=== PATIENT | female | born 1980 | race Caucasian/White ===

== ENCOUNTER → 2018-04-21 | Outpatient (CLI) | payer OTHER ==
--- NOTE | 2018-04-22 07:08 | US ---
EXAMINATION TYPE: US OB >= 14 wk fetus DATE OF EXAM: 04/21/2018 COMPARISON: None CLINICAL HISTORY: O09.521 Supervision of elderly multigravida,[address]St Tr for dates and cervical length me asure; HX of LEEP; ; all vaginal delivery TECHNIQUE: Transabdominal (TA) GESTATIONAL AGE / DATING Physician Established: Not yet established Dates by LMP: 12/28/2017 (16 weeks/2 days) EDC: 12/28/2018 Dates by First Scan: No previous: this is first scan Dates by Current Scan: (16 weeks/1 day) EDC: 10/05/2018 Beta HCG (if available): NA SURVEY IUP: Single PLACENTA: Anterior PREVIA: No Previa CINDY: 11.4 cm Normal CERVICAL LENGTH (transabdominal: norm > 3.0cm): 3.1 cm and multiple measures of cervix length are not ed at > 3.0cm. BIOMETRY PRESENTATION: Breech LIE: Longitudinal BPD: 3.4 cm 16 weeks / 3 days HC: 12.3 cm 16 weeks / 1 day AC: 10.0 cm 16 weeks / 0 days FL: 2.0 cm 16 weeks / 0 days ESTIMATED WEIGHT IN GRAMS: 143.0 grams ESTIMATED WEIGHT IN LBS/OZ: 0 lbs. 5 oz. WEIGHT PERCENTAGE BASED ON ESTABLISHED DATES: 26.4% HC/AC: 1.24 Normal FL/AC: 20.28 Normal HEART RATE: 160 bpm RHYTHM: Normal IMPRESSION: Large maternal body habitus is noted. Single, live IUP, 16 weeks/1 day, EDC: 10/05/2018, HR 160 bpm.
== END | disposition home or self-care (01) ==
LOC: RADUSWWP 16:05
PROVIDERS: ATTEND Obstetrics & Gynecology
DX: O09.521 Supervision of elderly multigravida, first trimester (principal); Z3A.16 16 weeks gestation of pregnancy
CPT/HCPCS: 76805

== ENCOUNTER → 2018-08-04 | Outpatient (CLI) | payer OTHER ==
--- NOTE | 2018-08-04 15:45 | US ---
EXAMINATION TYPE: US OB >= 14 wk fetus DATE OF EXAM: 08/04/2018 COMPARISON: None CLINICAL HISTORY: 38-year-old female O24.414 Gestational Diabetes Mellitus 3rd Trimester, Diabetes TECHNIQUE: Transabdominal (TA) FINDINGS: GESTATIONAL AGE / DATING Physician Established: (31 weeks/2 days) EDC: 10/04/18 Dates by First Scan: (31 weeks/1 days) EDC: 10/05/18 Dates by Current Scan: (31 weeks/1 days) EDC: 10/05/18 SURVEY IUP: Single PLACENTA: Anterior PREVIA: No Previa CINDY: 21.3 cm Normal (7.84-26.5 cm) CERVICAL LENGTH (transabdominal: norm > 3.0cm): 4.0 cm BIOMETRY PRESENTATION: Breech LIE: Transverse with head maternal RT BPD: 7.9 cm 31 weeks / 6 days HC: 29.3 cm 32 weeks / 2 days AC: 27.3 cm 31 weeks / 3 days FL: 5.9 cm 30 weeks / 5 days ESTIMATED WEIGHT IN GRAMS: 1742 grams ESTIMATED WEIGHT IN LBS/OZ: 3 lbs. 13 oz. WEIGHT PERCENTAGE BASED ON ESTABLISHED DATES: 38.7% HC/AC: 1.07 Normal FL/AC: 21.61 Normal HEART RATE: 143 bpm RHYTHM: Normal IMPRESSION: 1. Single live intrauterine with established gestational age of 31 weeks 2 days. Current ul trasound biometry is concordant (31 weeks 1 day) placing the gestation at the 39th percentile for robson ght. There has been appropriate interval growth. 2. Note CINDY close to the upper end of the normal range (21.3 cm). Follow-up as indicated. 3. Note that this exam was not performed as a survey.
== END | disposition home or self-care (01) ==
LOC: RADUSWWP 12:05
PROVIDERS: ATTEND Obstetrics & Gynecology
DX: O24.414 Gestational diabetes mellitus in pregnancy, insulin controlled (principal); Z3A.31 31 weeks gestation of pregnancy
CPT/HCPCS: 76805

== ENCOUNTER → 2018-09-16 | Outpatient (CLI) | payer OTHER ==
--- NOTE | 2018-09-16 16:54 | US ---
"EXAMINATION TYPE: US OB >= 14 wk fetus DATE OF EXAM: 09/16/2018 COMPARISON: US CLINICAL HISTORY: O24.414 Gestational diabetes mellitus in ; ; smoker; large maternal b rosalinda habitus TECHNIQUE: Transabdominal (TA) GESTATIONAL AGE / DATING Physician Established: (37 weeks/3 days) EDC: 10/04/2018 Dates by LMP: LMP unknown Dates by First Scan: (37 weeks/2 days) EDC: 10/05/2018 Dates by Current Scan: (36 weeks/1 day) EDC: 10/13/2018 Beta HCG (if available): NA SURVEY IUP: Single PLACENTA: Anterior PREVIA: No Previa CINDY: 31.2 cm Polyhydramnios as is > 27.2cm per machine's range allowance CERVICAL LENGTH (transabdominal: norm > 3.0cm): 3.9 cm BIOMETRY PRESENTATION: Vertex LIE: Transverse with head maternal right BPD: 9.0 cm 36 weeks / 3 days HC: 33.1 cm 37 weeks / 5 days AC: 32.1 cm 36 weeks / 3 days FL: 7.0 cm 35 weeks / 6 days ESTIMATED WEIGHT IN GRAMS: 2885.0 grams ESTIMATED WEIGHT IN LBS/OZ: 6 lbs. 6 oz. WEIGHT PERCENTAGE BASED ON ESTABLISHED DATES: 27.8% HC/AC: 1.03 Normal FL/AC: 21.78 Normal HEART RATE: 134 bpm RHYTHM: MATERNAL WALL MEASUREMENT: 4.6 cm from skin to anterior uterine wall (if exam limited due to body hab itus). 1. Single, live IUP, 36 weeks/1 day, EDC: 10/13/2018, HR 134bpm, polyhydramnios as CINDY > 27.2cm per m achine's range and assessed x 2. IMPRESSION: Single intrauterine gestation estimated at 36 weeks 1 day gestation based on current ultrasound measu rements. This has a cardiac activity measuring 134 bpm. 2. Polyhydramnios 3. Estimated weight 28th percentile based on current measurements. Estimated weight is 28 85 g. A [place] level critical message alert has been initiated for Marcelo Rosario DO via the [employer] | Critical Results System on 09/16/2018 4:50 PM. This message alert has been sent to Marcelo roberts DO via the preferences provided by the clinician for the receipt of Radiology Critical Findings. Judy essage ID [id number]."
== END | disposition home or self-care (01) ==
LOC: RADUSWWP 13:19
PROVIDERS: ATTEND Obstetrics & Gynecology
DX: O40.3XX0 Polyhydramnios, third trimester, not applicable or unspecified (principal); O24.414 Gestational diabetes mellitus in pregnancy, insulin controlled; Z3A.36 36 weeks gestation of pregnancy
CPT/HCPCS: 76805

== ENCOUNTER → 2020-05-11 | Outpatient (CLI) | payer OTHER | END | disposition home or self-care (01) | LOC: LABWHC1 09:54 | PROVIDERS: ATTEND Family Medicine | DX: R06.89 Other abnormalities of breathing (principal); R19.7 Diarrhea, unspecified; R05 Cough | CPT/HCPCS: U0003; C9803 ==

== ENCOUNTER → 2023-05-14 | Outpatient (CLI) | payer OTHER ==
--- NOTE | 2023-05-15 12:38 | MM ---
Reason for Exam: Screening (asymptomatic). Baseline mammogram. Patient History: Menarche at age 10. First Full-Term at age 19. Patient has history of breast feeding. Currently using Hormonal Contraceptives, for 2 years. Paternal aunt had breast cancer. Paternal uncle had breast cancer. Last menstrual period: 05/10/2023 Risk Values: Gayle 5 year model risk: 0.7%. NCI Lifetime model risk: 8.6%. Prior Study Comparison: Patient's first Mammogram. No prior studies available for comparison. Tissue Density: There are scattered fibroglandular densities. Findings: Analyzed By CAD. There is no suspicious group of microcalcifications or new suspicious mass. Benign-appearing calcifications bilaterally. Overall Assessment: Benign, BI-RAD 2 Management: Screening Mammogram of both breasts in [address] [facility] will attempt to contact patient to return for supplemental views and ultrasound if indicated. Patient should continue monthly self-breast exams. A clinical breast exam by your physician is recommended on an annual basis. This exam should not preclude additional follow-up of suspicious palpable abnormalities. Note on Gayle scores and lifetime risk: 1. A Gayle score greater than 3% is considered moderate risk. If this is the case, consider specialist referral to assess eligibility for a risk reducing agent. 2. If overall lifetime risk for the development of breast cancer is 20% or higher, the patient may qualify for future screening with alternating mammogram and breast MRI. Electronically signed and approved by: Ricky Hebert DO
== END ==
LOC: CPPFTMAIN 12:41
PROVIDERS: ATTEND Internal Medicine
DX: Z12.31 Encounter for screening mammogram for malignant neoplasm of breast (principal); J45.40 Moderate persistent asthma, uncomplicated; Z91.018 Allergy to other foods; Z91.011 Allergy to milk products; Z88.5 Allergy status to narcotic agent; Z87.891 Personal history of nicotine dependence; Z79.899 Other long term (current) drug therapy
CPT/HCPCS: 77063; 77067; 94060; 94726; 94729

== ENCOUNTER → 2024-01-13 | Outpatient (CLI) | payer OTHER ==
--- NOTE | 2024-01-13 17:01 | CT ---
EXAMINATION TYPE: CT abdomen pelvis wo con DATE OF EXAM: 01/13/2024 COMPARISON: None INDICATION: Upper abdominal pain x 6 days DLP: 1275 mGycm, Automated exposure control for dose reduction was used. CONTRAST: 0 mL of Isovue 300. Study performed with Oral Contrast TECHNIQUE: Axial images were obtained from above the diaphragm to the pubic rami in the axial plane a t 5 mm thick sections. Reconstructed images are reviewed on the computer in the coronal plane. FINDINGS: Limited CT sections are obtained the lung bases. The lung bases are clear. CT ABDOMEN: Liver: No discrete masses are evident. The liver is enlarged measuring 20 cm in craniocaudal dimensio n, normal less than 15.5 cm. Spleen: The spleen measures 12.6 cm in cranial caudal dimension. Normal is 12.5 cm. Pancreas: Normal Adrenal glands: The adrenal glands are normal. Gallbladder: Multiple gallstones are present. Kidneys: No masses are evident. No hydronephrosis is present. No cysts are present. No renal stone s are identified. Aorta: Normal Inferior vena cava: Normal. CT PELVIS: Loops of bowel distended with oral contrast appear unremarkable. Oral contrast extends to the cecum. There are loops of bowel lacking oral contrast were distended limiting their evaluation. A few divert iculi may be present. Appendix: Normal as visualized. Urinary bladder: Normal. Genitourinary structures: Uterus and adnexa appear normal. Osseous structures: No suspicious lytic or sclerotic lesions. IMPRESSION: 1. Cholelithiasis. 2. Hepatomegaly.
== END | disposition home or self-care (01) ==
LOC: RADCTMAIN 14:47
PROVIDERS: ATTEND Family Medicine
DX: K80.20 Calculus of gallbladder without cholecystitis without obstruction (principal); R16.1 Splenomegaly, not elsewhere classified; R16.0 Hepatomegaly, not elsewhere classified
CPT/HCPCS: 74176

== ENCOUNTER → 2024-02-23 | Outpatient (CLI) | payer OTHER ==
--- NOTE | 2024-02-23 14:07 | NM ---
EXAMINATION TYPE: NM hepatobiliary wo EF DATE OF EXAM: 02/23/2024 11:31 AM COMPARISON: CT abdomen pelvis most recent from 01/13/2024. CLINICAL INDICATION:Female, 43 years old with history of K80.20 CALCULUS OF GALLBLADDER W/O CHOLECY R10.84; TECHNIQUE: The patient was given 5 mCi of Technetium 99m-Mebrofenin as a radiotracer and multiple sc intigraphic images were obtained of the abdomen. Delayed imaging performed. FINDINGS: Normal uptake of radiotracer was identified within the liver with excretion into the hepatic and comm on biliary ducts within 10 minutes. There was normal progressive washout of the liver over the course of the study. Radiotracer uptake within the gallbladder is not definitively visualized. As well as s mall bowel activity was identified at 12 minutes. Uptake in the right upper quadrant delayed imaging thought to be within the duodenum. IMPRESSION: Poor visualization of the gallbladder. Not definitively visualized and 60 minute images area on delay ed imaging possibly representing duodenal uptake. Findings concerning for cystic duct obstruction. Villegas rgical consultation recommended.
== END | disposition home or self-care (01) ==
LOC: RADNMMAIN 06:47
PROVIDERS: ATTEND Family Medicine
DX: K80.20 Calculus of gallbladder without cholecystitis without obstruction (principal); R10.84 Generalized abdominal pain
CPT/HCPCS: 78226; A9537

== ENCOUNTER 2024-02-26 11:17 | Observation (INO) | payer OTHER ==
--- NOTE | 2024-02-26 11:28 | ED ---
Abdominal Pain HPI - General Source: patient, RN notes reviewed Mode of arrival: ambulatory Limitations: no limitations - History of Present Illness MD Complaint: abdominal pain <Christiane Krause - Last Filed: 02/26/24 11:26> - General Source: patient, family, RN notes reviewed, old records reviewed Mode of arrival: ambulatory Limitations: no limitations <Rasheeda Cardona - Last Filed: 02/26/24 19:05> - General Chief Complaint: Abdominal Pain Stated Complaint: severe abd pain Time Seen by Provider: 02/26/24 11:26 - History of Present Illness Initial Comments: Quick Note: This is a 43-year-old female who presents to the emergency department for abdominal pain. Patient had a HIDA scan 3 days ago concerning for cystic duct obstruction. States that she has had increasing pain and today it became severe. She has nausea but no vomiting. (Christiane Krause) 43 old female presented to the ER with a chief complaint of right upper quadran t/epigastric abdominal pain. She states this been ongoing for the past couple months and has been receiving outpatient workup. Patient states she had a HIDA scan done on 02-23-2024. She is scheduled for for a consultation with Dr. Leal, 05-27-2024. She states she has been taking [id number] ibuprofen and prescribed Bentyl with minor relief. She states today the pain has been intolerable which brought her to the ER. She describes the pain as sharp in nature. She endorses nausea denies vomiting. She is able to keep medications down but states it makes her extremely nauseous. She also reports intermittent diarrhea. Denies any fevers, chills, chest pain, shortness of breath, urinary complaints or peripheral edema. HIDA scan reviewed from 02-23-2024 showing findings concerning of a cystic duct obstruction. (Rasheeda Cardona) - Related Data Home Medications Medication Instructions Recorded Confirmed Loratadine [Claritin] 10 mg PO DAILY 12/20/13 02/26/24 Albuterol Nebulized [Ventolin 2.5 mg INHALATION RT-TID PRN 02/26/24 02/26/24 Nebulized] Albuterol Sulfate [Ventolin HFA] 1 - 2 puff INHALATION RT-QID PRN 02/26/24 02/26/24 Dicyclomine [Bentyl] 20 mg PO DAILY 02/26/24 02/26/24 Metoprolol Succinate [Toprol XL] 50 mg PO DAILY 02/26/24 02/26/24 Montelukast [Singulair] 10 mg PO DAILY 02/26/24 02/26/24 amLODIPine [Norvasc] 5 mg PO DAILY 02/26/24 02/26/24 Allergies Allergy/AdvReac Type Severity Reaction Status Date / Time chocolate flavor Allergy Unknown Verified 02/26/24 12:32 lactase [From Dairy Aid] Allergy Unknown Verified 02/26/24 12:32 maitake mushroom Allergy Unknown Verified 02/26/24 12:32 morphine Allergy Rash/Hives Verified 02/26/24 12:32 tomato Allergy Unknown Verified 02/26/24 12:32 Review of Systems ROS Other: All systems not noted in ROS Statement are negative. <Christiane Krause - Last Filed: 02/26/24 11:26> ROS Other: All systems not noted in ROS Statement are negative. <Rasheeda Cardona - Last Filed: 02/26/24 19:05> ROS Statement: Those systems with pertinent positive or pertinent negative responses have been documented in the HPI. Past Medical History Past Medical History: Hyperlipidemia, Hypertension History of Any Multi-Drug Resistant Organisms: None Reported Additional Past Surgical History / Comment(s): d & c Past Psychological History: Depression Past Alcohol Use History: Rare Past Drug Use History: Marijuana <Christiane Krause - Last Filed: 02/26/24 11:26> General Exam <Christiane Krause - Last Filed: 02/26/24 11:26> Limitations: no limitations General appearance: alert, in no apparent distress Respiratory exam: Present: normal lung sounds bilaterally. Absent: respiratory distress, wheezes, rales, rhonchi, stridor Cardiovascular Exam: Present: regular rate, normal rhythm, normal heart sounds. Absent: systolic murmur, diastolic murmur, rubs, gallop, clicks GI/Abdominal exam: Present: soft, tenderness (Right upper quadrant.), normal bowel sounds Extremities exam: Present: normal inspection, full ROM, normal capillary refill. Absent: tenderness, pedal edema, joint swelling, calf tenderness Neurological exam: Present: alert, oriented X3, CN II-XII intact Skin exam: Present: warm, dry, intact, normal color. Absent: rash <Rasheeda Cardona - Last Filed: 02/26/24 19:05> - General Exam Comments Initial Comments: Visual Physical Exam Vital signs reviewed General: Well-appearing, nontoxic, no acute distress. Head: Normocephalic, atraumatic Eyes: PERRLA, EOMI ENT: Airway patent Chest: Nonlabored breathing Skin: No visual rash, normal skin tone Neuro: Alert and oriented 3 Musculoskeletal: No gross abnormalities (Christiane Krause) Course <Rasheeda Cardona - Last Filed: 02/26/24 19:05> Vital Signs 02/26/24 02/26/24 12:26 16:57 Temperature 97.5 F L Pulse Rate 88 76 Respiratory 20 18 Rate Blood Pressure 141/92 143/83 O2 Sat by Pulse 100 100 Oximetry - Reevaluation(s) Reevaluation #1: 02/26/24 17:[address] Leal, pest controller general surgery, for admission. (Rasheeda Cardona) Medical Decision Making <Christiane Krause - Last Filed: 02/26/24 11:26> - Lab Data Result diagrams: 02/26/24 12:39 02/26/24 12:39 - Radiology Data Radiology results: report reviewed, image reviewed <Rasheeda Cardona - Last Filed: 02/26/24 19:05> - Medical Decision Making I performed the QuickNote portion of this chart. Signed Christiane Krause PA-C. (Christiane Krause) Was pt. sent in by a medical professional or institution (BARRY Aceves, CHARGING OPERATOR, urgent care, hospital, or correction...) When possible be specific @ -No Did you speak to anyone other than the patient for history (EMS, parent, family, police, friend...)? What history was obtained from this source @ -No Did you review nursing and triage notes (agree or disagree)? Why? @ -I reviewed and agree with nursing and triage notes Were old charts reviewed (outside hosp., previous admission, EMS record, old EKG, old radiological studies, urgent care reports/EKG's, correction records)? Report findings @ -Yes, I reviewed HIDA scan from 02-23-2024. Findings concerning of his cystic duct obstruction. Differential Diagnosis (chest pain, altered mental status, abdominal pain women, abdominal pain men, vaginal bleeding, weakness, fever, dyspnea, syncope, headache, dizziness, GI bleed, back pain, seizure, CVA, palpatations, mental health, musculoskeletal)? @ -Differential Abdominal Pain Women: Appendicitis, Cholecystitis, diverticulosis, ischemic bowel, pancreatitis, hepatitis, UTI, gastroenteritis, AAA, incarcerated hernia, bowel obstruction, constipation, inflammatory bowel, hepatitis, peptic ulcer disease, splenic infarction, perforated viscus, vulvitis, ovarian torsion, PID, kidney stone, placenta abruption, this is not meant to be an all-inclusive list EKG interpreted by me (3pts min.). @ -None X-rays interpreted by me (1pt min.). @ -None done CT interpreted by me (1pt min.). @ -None done U/S interpreted by me (1pt. min.). @ -Gallbladder ultrasound showing a multiple nonmobile stones with a large stone within the neck measuring 1.6 cm. Common bile duct is dilated to 0.9 cm. No evidence of cholecystitis. What testing was considered but not performed or refused? (CT, X-rays, U/S, labs)? Why? @ -None What meds were considered but not given or refused? Why? @ -None Did you discuss the management of the patient with other professionals (professionals i.e. , PA, CHARGING OPERATOR, lab, RT, psych nurse, social work professor, freight rate analyst, teacher, correction officer reformatory, lining caser)? Give summary @ -Yes, case discussed with on-call general surgeon, Dr. Leal, for admission. Was smoking cessation discussed for >3mins.? @ -No Was critical care preformed (if so, how long)? @ -No Were there social determinants of health that impacted care today? How? (Homelessness, low income, unemployed, alcoholism, drug addiction, transportation, low edu. Level, literacy, decrease access to med. care, nursing home, rehab)? @ -No Was there de-escalation of care discussed even if they declined (Discuss DNR or withdrawal of care, Hospice)? DNR status @ -No What co-morbidities impacted this encounter? (DM, HTN, Smoking, COPD, CAD, Cancer, CVA, ARF, Chemo, Hep., AIDS, mental health diagnosis, sleep apnea, morbid obesity)? @ -Obese, hypertension, hyperlipidemia Was patient admitted / discharged? Hospital course, mention meds given and route, prescriptions, significant lab abnormalities, going to OR and other pertinent info. @ -Admitted. 43-year-old female presented to the ER with a chief complaint of right upper quadrant abdominal pain. Patient originally seen in initial orders completed as a quick note. Upon my evaluation, history and physical exam completed. Vitals stable. Patient in no signs of acute distress and nontoxic- appearing. Exam remarkable for right upper quadrant/epigastric abdominal tenderness. No rebound or guarding. Normal bowel sounds. Laboratory studies obtained unremarkable. Gallbladder ultrasound performed showing multiple nonmobile stones within the gallbladder with a large stone within the neck measuring 1.6 cm. There is common bile duct dilation at 0.9 cm. No evidence of acute process. HIDA scan reviewed from 02-23-2024 with findings concerning of cystic duct obstruction. Admission considered due to cystic duct obstruction and common bile duct dilation. Case discussed with on-call general surgeon, Dr. Leal ,accepts admission. Upon reevaluation, patient resting comfortably on stretcher in no signs of acute distress. Symptomatic treatment in the ER, with mild improvement. Patient agreeable for admission. Patient admitted in stable condition for further care and treatment. Case discussed with ED attending, Dr Shaffer. Undiagnosed new problem with uncertain prognosis? @ -No Drug Therapy requiring intensive monitoring for toxicity (Heparin, Nitro, Insulin, Cardizem)? @ -No Were any procedures done? @ -No Diagnosis/symptom? @ -Cholelithiasis/cystic duct obstruction/common bile duct dilation Acute, or Chronic, or Acute on Chronic? @ -Acute Uncomplicated (without systemic symptoms) or Complicated (systemic symptoms)? @ -Complicated Side effects of treatment? @ -No Exacerbation, Progression, or Severe Exacerbation? @ -No Poses a threat to life or bodily function? How? (Chest pain, [place], [place], pneumonia, PE, COPD, DKA, ARF, appy, cholecystitis, CVA, Diverticulitis, Homicidal, Suicidal, threat to staff... and all critical care pts) @ -Yes, cystic duct obstruction is concerning of the common bile duct obstruction which can lead to cholangitis and sepsis. (Rasheeda Cardona) - Lab Data Lab Results 02/26/24 02/26/24 02/26/24 Range/Units 12:39 12:39 12:39 WBC 5.9 (3.8-10.6) k/uL RBC 4.71 (3.80-5.40) m/uL Hgb 13.1 (11.4-16.0) gm/dL Hct 38.8 (34.0-46.0) % MCV 82.5 (80.0-100.0) fL MCH 27.8 (25.0-35.0) pg MCHC 33.7 (31.0-37.0) g/dL RDW 13.9 (11.5-15.5) % Plt Count 211 (150-450) k/uL MPV 7.5 Neutrophils % 66 % Lymphocytes % 23 % Monocytes % 6 % Eosinophils % 3 % Basophils % 1 % Neutrophils # 3.9 (1.3-7.7) k/uL Lymphocytes # 1.4 (1.0-4.8) k/uL Monocytes # 0.3 (0-1.0) k/uL Eosinophils # 0.2 (0-0.7) k/uL Basophils # 0.0 (0-0.2) k/uL PT 10.2 (10.0-12.5) sec INR 0.9 (<1.2) APTT 24.4 (22.0-30.0) sec Sodium 140 (137-145) mmol/L Potassium 4.0 (3.5-5.1) mmol/L Chloride 104 (98-107) mmol/L Carbon Dioxide 29 (22-30) mmol/L Anion Gap 7 mmol/L BUN 13 (7-17) mg/dL Creatinine 0.66 (0.52-1.04) mg/dL Est GFR (CKD-EPI)AfAm >90 (>60 ml/min/1.73 sqM) Est GFR (CKD-EPI)NonAf >90 (>60 ml/min/1.73 sqM) Glucose 177 H (74-99) mg/dL Plasma Lactic Acid Arley (0.7-2.0) mmol/L Calcium 9.3 (8.4-10.2) mg/dL Total Bilirubin 0.4 (0.2-1.3) mg/dL AST 26 (14-36) U/L ALT 28 (4-34) U/L Alkaline Phosphatase 67 (38-126) U/L Total Protein 7.0 (6.3-8.2) g/dL Albumin 4.3 (3.5-5.0) g/dL HCG, Qual Not Detected 02/26/24 Range/Units 12:39 WBC (3.8-10.6) k/uL RBC (3.80-5.40) m/uL Hgb (11.4-16.0) gm/dL Hct (34.0-46.0) % MCV (80.0-100.0) fL MCH (25.0-35.0) pg MCHC (31.0-37.0) g/dL RDW (11.5-15.5) % Plt Count (150-450) k/uL MPV Neutrophils % % Lymphocytes % % Monocytes % % Eosinophils % % Basophils % % Neutrophils # (1.3-7.7) k/uL Lymphocytes # (1.0-4.8) k/uL Monocytes # (0-1.0) k/uL Eosinophils # (0-0.7) k/uL Basophils # (0-0.2) k/uL PT (10.0-12.5) sec INR (<1.2) APTT (22.0-30.0) sec Sodium (137-145) mmol/L Potassium (3.5-5.1) mmol/L Chloride (98-107) mmol/L Carbon Dioxide (22-30) mmol/L Anion Gap mmol/L BUN (7-17) mg/dL Creatinine (0.52-1.04) mg/dL Est GFR (CKD-EPI)AfAm (>60 ml/min/1.73 sqM) Est GFR (CKD-EPI)NonAf (>60 ml/min/1.73 sqM) Glucose (74-99) mg/dL Plasma Lactic Acid Arley 1.0 (0.7-2.0) mmol/L Calcium (8.4-10.2) mg/dL Total Bilirubin (0.2-1.3) mg/dL AST (14-36) U/L ALT (4-34) U/L Alkaline Phosphatase (38-126) U/L Total Protein (6.3-8.2) g/dL Albumin (3.5-5.0) g/dL HCG, Qual Disposition <Christiane Krause - Last Filed: 02/26/24 11:26> Time of Disposition: 17:36 <Rasheeda Cardona - Last Filed: 02/26/24 19:05> Clinical Impression: Cholelithiasis, Calculus of cystic duct, Common bile duct dilatation Disposition: ADMITTED IP TO THIS [facility] Condition: Stable Referrals: Jackie French MD [Primary Care Provider] - 1-2 days
--- NOTE | 2024-02-26 13:34 | US ---
EXAMINATION TYPE: US gallbladder DATE OF EXAM: 02/26/2024 COMPARISON: NONE CLINICAL INDICATION: Female, 43 years old with history of RUQ pain, hx of gallbladder problems; known failed HIDA scan 3 days ago, stones seen on CT, pending cholecystectomy in Apr but pain is getting w orse TECHNIQUE: Multiple sonographic images of the right upper quadrant are obtained. FINDINGS: EXAM MEASUREMENTS: Liver Length: 21.3 cm Gallbladder Wall: 0.2 cm CBD: 0.9 cm Right Kidney: 10.1 x 4.7 x 5.1 cm FLAT HAMMERER NOTES: large habitus and bowel gas limits exam Pancreas: limited views appear wnl Liver: enlarged and difficult to penetrate Gallbladder: multiple non mobile stone with large stone within neck = 1.6cm Evidence for sonographic Scales's sign: no CBD: dilated Right Kidney: wnl IMPRESSION: 1. No evidence for acute process. 2. Hepatic steatosis. 3. Cholelithiasis.
[2024-02-26 13:54] LABS: Basophils % (A) 1 %; Eosinophils # (A) 0.2 k/uL (0-0.7); Eosinophils % (A) 3 %; HCT 38.8 % (34.0-46.0); HGB 13.1 gm/dL (11.4-16.0); Lymphocytes # (A) 1.4 k/uL (1.0-4.8); Lymphocytes % (A) 23 %; MCH 27.8 pg (25.0-35.0); MCHC 33.7 g/dL (31.0-37.0); MCV 82.5 fL (80.0-100.0); Mean Platelet Volume 7.5; Monocytes # (A) 0.3 k/uL (0-1.0); Monocytes % (A) 6 %; Neutrophils # (A) 3.9 k/uL (1.3-7.7); Neutrophils % (A) 66 %; Platelet Count 211 k/uL (150-450); RBC 4.71 m/uL (3.80-5.40); RDW 13.9 % (11.5-15.5); WBC 5.9 k/uL (3.8-10.6)
[2024-02-26 14:03] LABS: INR 0.9 (<1.2); Partial Thromboplastin Time 24.4 sec (22.0-30.0); Prothrombin Time 10.2 sec (10.0-12.5)
[2024-02-26 14:05] LABS: ALT 28 U/L (4-34); AST 26 U/L (14-36); African American GFR (CKD) >90 (>60 ml/min/1.73 sqM); Albumin 4.3 g/dL (3.5-5.0); Alkaline Phosphatase 67 U/L (38-126); Anion Gap 7 mmol/L; Blood Urea Nitrogen 13 mg/dL (7-17); Calcium 9.3 mg/dL (8.4-10.2); Carbon Dioxide 29 mmol/L (22-30); Chloride 104 mmol/L (98-107); Glucose 177 mg/dL (74-99); Non-African American GFR(CKD) >90 (>60 ml/min/1.73 sqM); Sodium 140 mmol/L (137-145); Total Bilirubin 0.4 mg/dL (0.2-1.3)
[2024-02-26 14:34] LABS: HCG,Qualitative Serum Not Detected
[2024-02-26] MEDS: SODIUM CHLORIDE 0.9% 1,000 ML IV STA (17:04)
[2024-02-26] MEDS: KETOROLAC 15 MG/ML 1 ML VIAL IVP STA (17:04)
[2024-02-26] MEDS ORDERED: NALOXONE 0.4 MG/ML 1 ML VIAL IV PRN (17:32)
[2024-02-26] MEDS ORDERED: ALBUTEROL NEBULIZED 2.5 MG/3 ML INHALATION PRN (19:06)
[2024-02-26] MEDS: SODIUM CHLORIDE 0.9% 1,000 ML IV SCH (19:47)
[2024-02-27] MEDS: PIPERACILLIN-TAZOBACTAM 3.375 GM in SODIUM CHLORIDE 0.9% 100 ML IVPB SCH ×2 (02:00→19:21)
[2024-02-27] MEDS: ONDANSETRON 4 MG/2 ML VIAL IVP PRN (04:05)
[2024-02-27] MEDS: KETOROLAC 15 MG/ML 1 ML VIAL IVP PRN (04:05)
[2024-02-27] MEDS: METOPROLOL SUCCINATE (ER) 50 MG TAB.ER.24H PO SCH (08:38)
[2024-02-27] MEDS: amLODIPine 5 MG TAB PO SCH (08:38)
[2024-02-27] MEDS: IV FLUID CONTINUATION 50 ML IV ONE (08:46)
[2024-02-27] MEDS: IV FLUID CONTINUATION 1,000 ML IV ONE (08:46)
--- NOTE | 2024-02-27 08:54 | P.GSHP ---
History of Present Illness H&P Date: 02/27/24 Chief Complaint: Acute calculus cholecystitis 43-year-old female has been having increasing pain epigastric region and right upper quadrant for the last few months. Patient has had a workup as an outpatient including HIDA scan and CAT scan. Ultrasound shows gallstones with a stone nonmobile bile in the gallbladder neck. HIDA scan showed little to no filling of the gallbladder on 02/22. No change in the color of her skin urine or stool. Patient was scheduled to see me in the office in April. Recent lab works from this hospital admission look good. No fevers. - Review of Systems Comment: The patient denies any acute changes in vision or hearing, no dysphagia or odynophagia, no chest pain or shortness of breath, no dysuria or hematuria, no headache, no runny nose, no rectal bleeding or melena, no unexplained weight lo ss Past Medical History Past Medical History: Hyperlipidemia, Hypertension History of Any Multi-Drug Resistant Organisms: None Reported Additional Past Surgical History / Comment(s): d & c Past Psychological History: Depression Smoking Status: Former smoker Past Alcohol Use History: Rare Past Drug Use History: Marijuana Medications and Allergies Home Medications Medication Instructions Recorded Confirmed Type Loratadine [Claritin] 10 mg PO DAILY 12/20/13 02/26/24 History Albuterol Nebulized [Ventolin 2.5 mg INHALATION RT-TID PRN 02/26/24 02/26/24 History Nebulized] Albuterol Sulfate [Ventolin HFA] 1 - 2 puff INHALATION RT-QID PRN 02/26/2408/20 History Dicyclomine [Bentyl] 20 mg PO DAILY 02/26/24 02/26/24 History Metoprolol Succinate [Toprol XL] 50 mg PO DAILY 02/26/24 02/26/24 History Montelukast [Singulair] 10 mg PO DAILY 02/26/24 02/26/24 History amLODIPine [Norvasc] 5 mg PO DAILY 02/26/24 02/26/24 History Allergies Allergy/AdvReac Type Severity Reaction Status Date / Time chocolate flavor Allergy Unknown Verified 02/26/24 12:32 lactase [From Dairy Aid] Allergy Unknown Verified 02/26/24 12:32 maitake mushroom Allergy Unknown Verified 02/26/24 12:32 morphine Allergy Rash/Hives Verified 02/26/24 12:32 tomato Allergy Unknown Verified 02/26/24 12:32 Surgical - Exam Vital Signs Temp Pulse Resp BP Pulse Ox 97.5 F L 88 20 141/92 100 02/26/24 12:26 02/26/24 12:26 02/26/24 12:26 02/26/24 12:26 02/26/24 12:26 Physical exam: General: Well-developed, well-nourished HEENT: Normocephalic, sclerae nonicteric Abdomen: Right upper quadrant tenderness nondistended Extremities: No edema Neuro: Alert and oriented Results - Labs 02/26/24 12:39 02/26/24 12:39 Abnormal Lab Results - Last 24 Hours (Table) 02/26/24 Range/Units 12:39 Glucose 177 H (74-99) mg/dL Diabetes panel 02/26/24 Range/Units 12:39 Sodium 140 (137-145) mmol/L Potassium 4.0 (3.5-5.1) mmol/L Chloride 104 (98-107) mmol/L Carbon Dioxide 29 (22-30) mmol/L BUN 13 (7-17) mg/dL Creatinine 0.66 (0.52-1.04) mg/dL Glucose 177 H (74-99) mg/dL Calcium 9.3 (8.4-10.2) mg/dL AST 26 (14-36) U/L ALT 28 (4-34) U/L Alkaline Phosphatase 67 (38-126) U/L Total Protein 7.0 (6.3-8.2) g/dL Albumin 4.3 (3.5-5.0) g/dL Calcium panel 02/26/24 Range/Units 12:39 Calcium 9.3 (8.4-10.2) mg/dL Albumin 4.3 (3.5-5.0) g/dL Pituitary panel 02/26/24 Range/Units 12:39 Sodium 140 (137-145) mmol/L Potassium 4.0 (3.5-5.1) mmol/L Chloride 104 (98-107) mmol/L Carbon Dioxide 29 (22-30) mmol/L BUN 13 (7-17) mg/dL Creatinine 0.66 (0.52-1.04) mg/dL Glucose 177 H (74-99) mg/dL Calcium 9.3 (8.4-10.2) mg/dL Adrenal panel 02/26/24 Range/Units 12:39 Sodium 140 (137-145) mmol/L Potassium 4.0 (3.5-5.1) mmol/L Chloride 104 (98-107) mmol/L Carbon Dioxide 29 (22-30) mmol/L BUN 13 (7-17) mg/dL Creatinine 0.66 (0.52-1.04) mg/dL Glucose 177 H (74-99) mg/dL Calcium 9.3 (8.4-10.2) mg/dL Total Bilirubin 0.4 (0.2-1.3) mg/dL AST 26 (14-36) U/L ALT 28 (4-34) U/L Alkaline Phosphatase 67 (38-126) U/L Total Protein 7.0 (6.3-8.2) g/dL Albumin 4.3 (3.5-5.0) g/dL Assessment and Plan (1) Acute cholecystitis due to biliary calculus Narrative/Plan: Clinical scenario discussed with patient. Will proceed with laparoscopic, possible open cholecystectomy at this time. Risks of bleeding, infection, bile leak, bile duct injury, retained common bile duct stone, trocar injury, conversion to an open procedure, hernia, anesthesia related complications were reviewed. The patient understands and wishes to proceed. Current Visit: Yes Status: Acute Code(s): K80.00 - CALCULUS OF GALLBLADDER W ACUTE CHOLECYST W/O OBSTRUCTION SNOMED Code(s): 79760542541793
[2024-02-27] MEDS: DEXAMETHASONE SOD PHOSPHATE 4 MG/ML 1 ML VIAL IVP STA (09:06)
[2024-02-27] MEDS: ACETAMINOPHEN TAB 500 MG TAB PO STA (09:06)
[2024-02-27] MEDS: HEPARIN SODIUM,PORCINE 5,000 UNIT/ML 1 ML VIAL SQ STA (09:06)
[2024-02-27] MEDS: BUPIVACAINE (PF) 0.25% 30 ML VIAL SQ ONE (09:13)
[2024-02-27] MEDS ORDERED: fentaNYL (PF) 50 MCG/ML 2 ML AMP ONE (09:15)
[2024-02-27] MEDS ORDERED: MIDAZOLAM 2 MG/2 ML VIAL ONE (09:15)
[2024-02-27] MEDS ORDERED: PROPOFOL 10 MG/ML 20 ML VIAL IV ONE (09:15)
[2024-02-27] MEDS ORDERED: NEOSTIGMINE 1 MG/ML 10 ML VIAL ONE (09:15)
[2024-02-27] MEDS ORDERED: ROCURONIUM 10 MG/ML (5 ML VIAL) IV ONE (09:15)
[2024-02-27] MEDS ORDERED: LABETALOL 5 MG/ML VIAL MDV ONE (09:15)
[2024-02-27] MEDS ORDERED: LIDOCAINE 1% INJ 10MG/ML (20 ML MDV) ONE (09:15)
[2024-02-27] MEDS ORDERED: SUCCINYLCHOLINE CHLORIDE 200 MG/10 ML VIAL IV ONE (09:15)
[2024-02-27] MEDS ORDERED: GLYCOPYRROLATE 0.2 MG/ML 2 ML VIAL ONE (09:15)
[2024-02-27] MEDS: LACTATED RINGERS 1,000 ML IV ONE (09:50)
--- NOTE | 2024-02-27 10:28 | P.OP ---
Date of Procedure: 02/27/24 Procedure(s) Performed: PREOPERATIVE DIAGNOSIS: Acute calculus cholecystitis POSTOPERATIVE DIAGNOSIS: Same PROCEDURE: Laparoscopic cholecystectomy SURGEON: Mel EBL: Minimal see anesthesia record ANESTHESIA: Gen. COMPLICATIONS: None OPERATIVE PROCEDURE: The patient was brought and placed on the operating room table in the supine position. The patient was placed under general anesthesia at that time. The abdomen was prepped and draped in the usual sterile fashion. A small vertical infraumbilical incision was made. The fascia was grasped with the Sunday forceps. The fascia was retracted anteriorly. The Veress needle was advanced into the peritoneal cavity. The saline drop test was normal. Ins ufflation took place up to 15 mmHg. A 5 mm optical trocar was advanced and the peritoneal cavity. 2 additional 5 mm trochars were placed in the right upper quadrant under direct visualization. A 12 mm trocar was advanced into the epigastric incision site. The gallbladder was retracted superiorly and laterally. The peritoneum overlying the infundibulum was bluntly dissected. The patient's cystic duct was visualized. The junction between the cystic duct common and hepatic duct was identified. The critical view of safety was achieved after blunt dissection. There was significant inflammation of the infundibulum from the impacted stone. The inflammation carried down onto the cystic duct. The cystic duct was ligated using a 2-0 Ethibond stitch which was tied down using a tie knot device. An additional 2 clips were placed on the patient's side. The adjacent cystic artery was identified and clipped as well. A small vessel was seen along the gallbladder fossa and clipped as well. The gallbladder was then removed from the liver bed using electrocautery. The gallbladder was then removed from the epigastric trocar site with an Endo Catch bag. The gallbladder fossa was irrigated with saline. There was no evidence of any bleeding or biliary drainage seen. The fascia at the 12 millimeter site was closed using a Casey-Jovi 0 Vicryl stitch. The trochars were then removed. The skin at all 4 sites was closed using a 4-0 Monocryl stitch. Skin glue was utilized on the incision sites. At the end of this procedure the sponge and needle counts were correct. DISPOSITION: Stable to the recovery room
[2024-02-27] MEDS: HYDROmorphone 0.5 MG/0.5 ML SYRINGE IVP PRN (11:01)
[2024-02-27] MEDS ORDERED: hydrALAZINE HCL 20 MG/ML 1 ML VIAL IM STA (11:05)
[2024-02-27] MEDS: hydrALAZINE HCL 20 MG/ML 1 ML VIAL IVP STA (11:10)
[2024-02-27] MEDS: droPERidol 5 MG/2 ML VIAL IVP ONE (13:22)
[2024-02-27] MEDS ORDERED: DEXAMETHASONE SOD PHOSPHATE 4 MG/ML 1 ML VIAL IVP PRN (18:34)
[2024-02-27] MEDS: METOCLOPRAMIDE 5 MG/ML 2 ML VIAL IVP PRN (18:47)
[2024-02-27] MEDS: HYDROmorphone 1 MG/ML 1 ML SYRINGE IVP PRN (20:59)
[2024-02-27] MEDS: ACETAMINOPHEN TAB 325 MG TAB PO PRN (21:11)
[2024-02-27] MEDS: FAMOTIDINE 20 MG TAB PO SCH (21:11)
[2024-02-27] MEDS: LORATADINE 10 MG TAB PO SCH (23:03)
[2024-02-27 23:15] LABS: Basophils # (A) 0.1 k/uL (0-0.2); Basophils % (A) 1 %; Eosinophils # (A) 0.1 k/uL (0-0.7); Eosinophils % (A) 1 %; HCT 39.7 % (34.0-46.0); HGB 13.2 gm/dL (11.4-16.0); Lymphocytes # (A) 0.5 k/uL (1.0-4.8); Lymphocytes % (A) 5 %; MCH 27.6 pg (25.0-35.0); MCHC 33.1 g/dL (31.0-37.0); MCV 83.2 fL (80.0-100.0); Mean Platelet Volume 6.8; Monocytes # (A) 0.4 k/uL (0-1.0); Monocytes % (A) 4 %; Neutrophils # (A) 8.5 k/uL (1.3-7.7); Neutrophils % (A) 89 %; Platelet Count 215 k/uL (150-450); RBC 4.77 m/uL (3.80-5.40); RDW 13.8 % (11.5-15.5); WBC 9.6 k/uL (3.8-10.6)
[2024-02-28 03:16] VITALS: RESP 16; TEMP 98.4
[2024-02-28] MEDS: HYDROcodone/APAP 5-325MG 1 EACH TAB PO PRN (03:54)
--- NOTE | 2024-02-28 05:25 | P.CONS ---
History of Present Illness - Reason for Consult Consult date: 02/27/24 - History of Present Illness Patient is a 43-year-old female with a PMH of hypertension and asthma who had presented to the emergency room on 02/25 with complaints of abdominal discomfort. Patient had also reported nausea with vomiting. The patient had undergone imaging showing possible cystic duct obstruction. She was subsequently admitted under the surgery service and underwent laparoscopic cholecystectomy earlier to day and was seen postoperatively. Patient reported ongoing 7 out of 10 abdominal discomfort, largely at the incision sites. She reported mild postoperative nausea which is since resolved. Denied experiencing fever, chills, chest pain, shortness of breath, diarrhea. Review of systems: Pertinent positives and negatives as discussed in HPI, a complete review of systems was performed and all other systems are negative. Physical examination: Vital signs reviewed General: non toxic, no distress, appears at stated age, morbidly obese Derm: no unusual rashes/lesions, warm Head: atraumatic, normocephalic, symmetric Eyes: EOMI, no lid lag, anicteric sclera, pupils equal round reactive to light ENT: Nose and ears atraumatic Neck: No cervical lymphadenopathy, trachea midline, supple Mouth: no lip lesion, mucus membranes moist Cardiovascular: S1S2 reg, no murmur, positive dorsalis pedis pulse bilateral, no edema Lungs: CTA bilateral, no rhonchi, no rales, no accessory muscle use Abdominal: soft, incisions closed without surrounding skin abnormalities, no guarding Ext: muscle strength 5 out of 5 in all 4 extremities grossly, no gross muscle atrophy, no contractures, Neuro: CN II-XI grossly intact, no gross focal neuro deficits Psych: Alert, oriented, appropriate affect Assessment: Chronic conditions: Hypertension, asthma Hyperglycemia Status post laparoscopic cholecystectomy Imaging: Gallbladder ultrasound on 02/25 revealed cholelithiasis without an acute process. Data Review: Laboratory evaluation was remarkable for WBC count 9.6, hemoglobin 13.2, sodium 140, potassium 4.0, BUN 13, creatinine 0.66, glucose 177. Plan: Check A1c Insulin sliding scale blood glucose monitoring Resume patient's home antihypertensives Suspect tachycardia with elevated blood pressure likely due to pain Defer management of pain control and DVT prophylaxis to primary surgery service Past Medical History Past Medical History: Hyperlipidemia, Hypertension History of Any Multi-Drug Resistant Organisms: None Reported Additional Past Surgical History / Comment(s): d & c Past Anesthesia/Blood Transfusion Reactions: No Reported Reaction Past Psychological History: Depression Smoking Status: Former smoker Past Alcohol Use History: Rare Past Drug Use History: Marijuana Medications and Allergies Home Medications Medication Instructions Recorded Confirmed Type Loratadine [Claritin] 10 mg PO DAILY 12/20/13 02/26/24 History Albuterol Nebulized [Ventolin 2.5 mg INHALATION RT-TID PRN 02/26/24 02/26/24 History Nebulized] Albuterol Sulfate [Ventolin HFA] 1 - 2 puff INHALATION RT-QID PRN 02/26/24 02/26/24 History Dicyclomine [Bentyl] 20 mg PO DAILY 02/26/24 02/26/24 History Metoprolol Succinate [Toprol XL] 50 mg PO DAILY 02/26/24 02/26/24 History Montelukast [Singulair] 10 mg PO DAILY 02/26/24 02/26/24 History amLODIPine [Norvasc] 5 mg PO DAILY 02/26/24 02/26/24 History HYDROcodone/APAP 5-325MG [[place] 1 tab PO Q6HR PRN 3 Days #6 tab 02/27/24 Rx 5-325] Allergies Allergy/AdvReac Type Severity Reaction Status Date / Time chocolate flavor Allergy Unknown Verified 02/26/24 12:32 lactase [From Dairy Aid] Allergy Unknown Verified 02/26/24 12:32 maitake mushroom Allergy Unknown Verified 02/26/24 12:32 morphine Allergy Rash/Hives Verified 02/26/24 12:32 tomato Allergy Unknown Verified 02/26/24 12:32 Physical Exam Vitals: Vital Signs Temp Pulse Pulse Resp BP BP Pulse Ox 02/27/24 21:15 122 H 16 160/89 98 02/27/24 20:40 99.0 F 122 H 16 156/102 98 02/27/24 16:45 98.5 F 100 16 146/90 96 02/27/24 14:15 98.4 F 101 H 14 148/90 96 02/27/24 14:00 89 15 124/85 93 L 02/27/24 13:30 92 17 105/50 94 L 02/27/24 13:00 90 16 167/97 94 L 02/27/24 12:30 90 17 154/83 93 L 02/27/24 12:00 83 19 173/89 98 02/27/24 11:30 84 17 145/66 92 L 02/27/24 11:15 87 17 175/86 94 L 02/27/24 11:00 85 17 185/94 92 L 02/27/24 10:43 93 15 176/92 95 02/27/24 10:28 98 F 89 16 176/93 100 02/27/24 08:52 97.4 F L 86 16 162/83 100 02/27/24 08:35 97.7 F 80 18 158/96 96 02/27/24 04:00 76 16 148/88 96 02/27/24 03:00 70 16 148/82 96 02/27/24 01:00 76 16 158/62 98 Intake and Output 02/27/24 02/27/24 02/28/24 14:59 22:59 06:59 Intake Total 1650 720 Output Total 605 300 Balance 1045 420 Intake: IV 1650 Oral 720 Output: Urine 600 Emesis 300 Estimated Blood Loss 5 Other: # Voids 1 2 Weight 117.934 kg Results CBC & Chem 7: 02/27/24 22:50 02/26/24 12:39 Labs: Abnormal Lab Results - Last 24 Hours (Table) 02/27/24 Range/Units 22:50 Neutrophils # 8.5 H (1.3-7.7) k/uL Lymphocytes # 0.5 L (1.0-4.8) k/uL
[2024-02-28] MEDS: INSULIN ASPART (NovoLOG) 100 UNIT/ML VIAL SQ SCH (06:29)
--- NOTE | 2024-02-28 13:30 | P.PN ---
Subjective Progress Note Date: 02/28/24 Patient has no new complaints today. Patient's blood pressure still remains high, however, this can be titrated as an outpatient. She should continue her home medications of amlodipine, metoprolol. Patient advised on outpatient follow-up for titration of these medications with her primary care physician. Furthermore she was notified of her A1c at 6.9% which represents a diabetic diagnosis, and is not interested in starting medication at this time, however, I recommended she follow-up with her primary care physician regarding this finding and for optimizing her risk factor modification and diabetes treatment. Gen: In NAD, non-toxic HEENT: normocephalic, atraumatic, hearing acuity is intant, mucous membranes moist CVS: perfusing all extremities well, no pitting edema, Respiratory: symmetric chest expansion, no accessory muscle use, GI: soft, NTTP, ND, : no suprapubic tenderness, no CVA tenderness MSK/Derm: no rashes, cyanosis Neuro: CN II-XII intact, no motor weakness, Psych: cooperative, euthymic mood, judgment and insight is intact Hospital course: Patient is a 43-year-old female with a PMH of hypertension and asthma who had presented to the emergency room on 02/25 with complaints of abdominal discomfort. Patient had also reported nausea with vomiting. The patient had undergone imaging showing possible cystic duct obstruction. She was subsequently admitted under the surgery service and underwent laparoscopic cholecystectomy earlier today and was seen postoperatively. Patient reported ongoing 7 out of 10 abdominal discomfort, largely at the incision sites. She reported mild postoperative nausea which is since resolved. Denied experiencing fever, chills, chest pain, shortness of breath, diarrhea. Assessment/plan: Chronic conditions: Hypertension, asthma Hyperglycemia Status post laparoscopic cholecystectomy Check A1c = 6.9 Insulin sliding scale blood glucose monitoring Resume patient's home antihypertensives Suspect tachycardia with elevated blood pressure likely due to pain Defer management of pain control and DVT prophylaxis to primary surgery service Discharge recs: Follow-up with primary care physician for blood pressure medication titration as well as initiation of antidiabetic medications Objective - Vital Signs Vital signs: Vital Signs Temp 98.4 F 02/28/24 03:14 Pulse 104 H 02/28/24 03:14 Resp 16 02/28/24 03:14 BP 163/98 02/28/24 03:14 Pulse Ox 98 08/03/24 03:14 FiO2 Intake & Output 02/27/24 02/28/24 02/28/24 18:59 06:59 18:59 Intake Total 1650 720 Output Total 905 Balance 745 720 Weight 117.934 kg Intake: IV 1650 Oral 720 Output: Urine 600 Emesis 300 Estimated Blood Loss 5 Other: # Voids 2 3 - Labs CBC & Chem 7: 02/27/24 22:50 02/26/24 12:39 Labs: Abnormal Lab Results - Last 24 Hours (Table) 02/27/24 02/27/24 Range/Units 22:50 22:50 Neutrophils # 8.5 H (1.3-7.7) k/uL Lymphocytes # 0.5 L (1.0-4.8) k/uL Hemoglobin A1c 6.9 H (<=6.0) %
[2024-02-28 13:34] VITALS: BP 151/104; PULSE 98
--- NOTE | 2024-02-28 21:42 | P.DS ---
Providers Date of admission: 02/26/24 22:04 Expected date of discharge: 02/28/24 Attending physician: Jaciel Leal Consults: 02/27/24 22:40 Consult Physician Stat Consulting Provider: Ree Garnett Consult Reason/Comments: Inpatient Do you want consulting provider notified?: Yes Primary care physician: [facility] Course: Patient underwent cholecystectomy and was found to be tolerating a diet. Patient will be discharged home in stable condition. Patient Condition at Discharge: Stable Plan - Discharge Summary Discharge Rx Participant: Yes New Discharge Prescriptions: New HYDROcodone/APAP 5-325MG [[place] 5-325] 1 tab PO Q6HR PRN 3 Days #6 tab PRN Reason: Analgesia Continue Loratadine [Claritin] 10 mg PO DAILY Metoprolol Succinate [Toprol XL] 50 mg PO DAILY amLODIPine [Norvasc] 5 mg PO DAILY Montelukast [Singulair] 10 mg PO DAILY Dicyclomine [Bentyl] 20 mg PO DAILY Albuterol Nebulized [Ventolin Nebulized] 2.5 mg INHALATION RT-TID PRN PRN Reason: Shortness Of Breath Albuterol Sulfate [Ventolin HFA] 1 - 2 puff INHALATION RT-QID PRN PRN Reason: Shortness Of Breath Discharge Medication List Loratadine [Claritin] 10 mg PO DAILY 12/20/13 [History] Albuterol Nebulized [Ventolin Nebulized] 2.5 mg INHALATION RT-TID PRN 02/26/24 [History] Albuterol Sulfate [Ventolin HFA] 1 - 2 puff INHALATION RT-QID PRN 02/26/24 [History] Dicyclomine [Bentyl] 20 mg PO DAILY 02/26/24 [History] Metoprolol Succinate [Toprol XL] 50 mg PO DAILY 02/26/24 [History] Montelukast [Singulair] 10 mg PO DAILY 02/26/24 [History] amLODIPine [Norvasc] 5 mg PO DAILY 02/26/24 [History] HYDROcodone/APAP 5-325MG [[place] 5-325] 1 tab PO Q6HR PRN 3 Days #6 tab 02/27/24 [Rx] Follow up Appointment(s)/Referral(s): Jaciel Leal MD [Medical Doctor] - 1 Week Jackie French MD [Primary Care Provider] - 1-2 days Discharge Disposition: HOME SELF-CARE
== END 2024-02-28 13:20 | disposition home or self-care (01) ==
LOC: EC 11:17 → 5NMEDONC 22:04 → INTOOBSV 22:04 → 4FBP 02-27 13:55
PROVIDERS: ADMIT Surgery; ATTEND Surgery
DX: K80.00 Calculus of gallbladder with acute cholecystitis without obstruction (principal); E11.65 Type 2 diabetes mellitus with hyperglycemia; I10 Essential (primary) hypertension; E78.5 Hyperlipidemia, unspecified; J45.909 Unspecified asthma, uncomplicated; E66.9 Obesity, unspecified; Z68.42 Body mass index [BMI] 45.0-49.9, adult; F12.90 Cannabis use, unspecified, uncomplicated; Z79.899 Other long term (current) drug therapy; Z88.5 Allergy status to narcotic agent; Z91.018 Allergy to other foods; Z87.891 Personal history of nicotine dependence
CPT/HCPCS: 47562; 96376; 96361; 96374; 96375; 99285; 36415; 81025; 88304; 80053; 83605; 85025 ×2; 85610; 85730; 84703; 83036; 76705; G0378 ×2; J2543 ×2; J2250; J0330; J0360; J1644; J1100; J2710; J2765; J2405; J2001; J3010; J1170 ×2; J1885 ×3; J2704; J1790; J0665; J1920; J1596